=== PATIENT | male | born 1970 | race Hispanic/Latino ===

== ENCOUNTER 2023-12-20 22:10 | Inpatient (IN) | payer OTHER, SELFPAY ==
[2023-12-20] VITALS (8 sets, daily range): BP systolic 138–173; BP diastolic 84–110; BMI 40.0
--- NOTE | 2023-12-20 18:08 | ED.GENMED ---
History of Present Illness
<YOLANDA Gilliam - Last Filed: 12/20/23 21:55>
General
Chief Complaint: Swelling
Source: patient and spouse
Exam Limitations: other (patient unable to speak at this time. )
Time Seen by Provider: 12/20/23 17:53
Travel History
Have you had any contact with someone who has COVID-19?: No
Do you have any symptoms of coronavirus? Fever > 100 degrees, chills, cough, shortness of breath, sore throat, loss of taste or smell, muscle aches, or headache?: No
History of Present Illness
History of Present Illness:
This is a 53 year old male that comes in with c/o sore throat. states that he [place] been unable to speak since Sunday. states that his throat is swollen and he can't talk. States that his right ear hurts but the pain goes form one ear to the other
around his throat. States that the right sided is worse then the left. States that he cant eat or drink and has been unable to swallow his own saliva. States that he has also had a fever with chills on and off with nausea and a headache. States that
his urine is very dark. Denies any chest pain, SOB, abd pain, vomiting, diarrhea, dizziness, urinary burning.
Past History
<YOLANDA Gilliam - Last Filed: 12/20/23 21:55>
Past History
ED Past Medical History: HTN and Other (COVID)
ED Past Surgical History: Cholecystectomy and Other (Gastric bypass, Hernia X2 , abd skin removed from lower abd, Lumpectomy removed from neck, Abdominoplasty)
Social History
Tobacco: Non-smoker
Alcohol: Daily (Port wine 1 glass)
Drug: None
Personal:
Living: with family
Employment: Employed
Family History
Family History: Other (Noncontributory)
Review of Systems
<YOLANDA Gilliam - Last Filed: 12/20/23 21:55>
Review of Systems
All Other Systems: ROS reviewed and negative except as documented in HPI and ROS
Constitutional: Reports fever and chills
EENT: Reports sore throat and other (Unable to speak or swallow his own saliva)
Respiratory: Reports no symptoms; Denies cough or trouble breathing
Cardiac: Reports no symptoms; Denies chest pain
ABD/GI: Reports nausea; Denies abdominal pain, vomiting or diarrhea
: Reports dark urine; Denies dysuria, frequency or urgency
Musculoskeletal: Reports no symptoms
Skin: Reports no symptoms
Neurological: Reports headache; Denies dizzy
Psychiatric: Reports no symptoms
Phy Exam
<YOLANDA Gilliam - Last Filed: 12/20/23 21:55>
General Physical Exam
General Presentation: no apparent distress
General age: appears stated age
General Skin: warm and dry
General Habitus: normal
General Mental: alert
General Hydration: appears well hydrated
ENT Exam
ENT Exam: TM's normal, neck supple and other (Very large possible right sided tonsillar abscess. Unable to see Uvula, Bilateral Lymph adenopathy)
Eye Exam
Eye Exam: EOMI
Cardiovascular Exam
Cardiovascular Exam: regular rate/rhythm, no edema and normal peripheral pulses
Pulmonary Exam
Pulmonary Exam: lungs clear, no respiratory distress, no rales, chest non tender, no crackles, no rhonchi, no wheezing and no cough
Gastrointestinal Exam
Gastrointestinal Exam: normal bowel sounds, non tender, soft, no organomegaly, no pulsatile mass, non distended and other (obese)
Musculoskeletal Exam
Musculoskeletal Exam: full ROM and no edema
Skin Exam
Skin Exam: normal color, warm/dry, no rash and no petechia
Psychiatric Exam
Psychiatric Exam: normal mood/affect
Scores
<YOLANDA Gilliam - Last Filed: 12/20/23 21:55>
Heart Failure Risk
Heart Failure Risk Score: Not Applicable
Course
<YOLANDA Gilliam - Last Filed: 12/20/23 21:55>
Orders/Labs/Results
Orders:
Orders
12/20/23 18:06
CT Neck With Iv Contrast Urgent
Comment:
Reason For Exam: Swellig throat, Unable to swallow saliva or speak.
0.9% Sodium Chloride 1000 ml [Nss] 1,000 ml IV BOLUS
Dexamethasone Sod Phosphate [Decadron] 20 mg IV NOW STA
12/20/23 18:08
Acetaminophen 1000MG/100Ml [Ofirmev] 1,000 mg in 100 ml IV ONCE
Acetaminophen IV Indication:: ED Narcotic Naive Pt-ONCE
Ketorolac [Toradol] 30 mg IV NOW STA
12/20/23 18:14
Complete Blood Count/With Diff Urgent
Comprehensive Metabolic Panel Urgent
Lactic Acid Q4H
Comment: CANCEL 2nd LACTIC ACID IF 1st LACTIC ACID IS LESS THAN 2
Blood Culture Q30M
LEANDRO Source: Blood/Venous
Specimen Description:
Blood Culture Q30M
LEANDRO Source: Blood/Venous
Specimen Description:
12/20/23 21:05
Urinalysis Reflex To Culture Urgent
Date Specimen was Collected: 12/20/23
Time Specimen was Collected: 21:03
Urine Microscopic Reflex Cult Urgent
Urine Culture Urgent
LEANDRO Source: U
Specimen Description:
Date Specimen was Collected: 12/20/23
Time Specimen was Collected: 21:03
12/20/23 21:20
Clindamycin Phosphate [Cleocin] 300 mg 0.9% Sodium Chloride [Nss] 50 ml IV NOW
12/20/23 21:32
Consult ENT [ENT CONSULT] Urgent
Consulting Provider: Kian Li
Was physician already notified: Yes
Abnormal Lab Results
12/20/23 12/20/23
18:14 21:05
WBC 24.3 H 10^3/uL
(4.8-10.8)
RBC 6.25 H 10^6/uL
(4.70-6.10)
Hgb 12.2 L g/dL
(13.0-18.0)
MCV 65.8 L fL
(80.0-94.0)
MCH 19.5 L pg
(27.0-31.0)
MCHC 29.7 L g/dL
(33.0-37.0)
RDW 19.8 H %
(11.5-14.5)
Plt Count 426 H 10^3/uL
(130-400)
Abs Immat Gran (auto) 0.2 H 10^3/uL
(0-0.05)
Absolute Neuts (auto) 20.6 H 10^3/uL
(1.4-6.5)
Absolute Monos (auto) 1.8 H 10^3/uL
(0.1-0.6)
Immature Gran % 0.7 H %
(0-0.5)
Neutrophils % 84.7 H %
(42.2-75.2)
Lymphocytes % 6.8 L %
(20.5-51.1)
Glucose 118 H mg/dl
(70-99)
Alkaline Phosphatase 164 H U/L
(38-126)
Urine Ketones 1+ A
(Negative)
Urine Bilirubin 1+ A
(Negative)
Urine Urobilinogen 4+ A
(Neg - 1+)
Leukocyte Esterase Rfl Trace A
(Negative)
Urine Bacteria (Reflex) Moderate A
(Negative)
12/20/23 18:14
12/20/23 18:14
Leukocytosis, Hgb slightly low. Plt mildly elevated. Glucose nonfasting, Alk phos elevation. lactic acid 1.2
Vital Signs
Initial and Last Documented VS:
Initial Vital Signs
Temp Pulse Resp BP Pulse Ox
101.7 F H 98 16 173/110 98
12/20/23 16:49 12/20/23 16:49 12/20/23 16:49 12/20/23 16:49 12/20/23 16:49
Last Documented Vital Signs
Temp Pulse Resp BP Pulse Ox
101.7 F H 86 16 148/92 97
12/20/23 16:49 12/20/23 20:31 12/20/23 20:31 12/20/23 20:30 12/20/23 20:31
<Naresh Rodriguez MD - Last Filed: 12/20/23 21:34>
Orders/Labs/Results
Orders:
Orders
12/20/23 18:06
CT Neck With Iv Contrast Urgent
Comment:
Reason For Exam: Swellig throat, Unable to swallow saliva or speak.
0.9% Sodium Chloride 1000 ml [Nss] 1,000 ml IV BOLUS
Dexamethasone Sod Phosphate [Decadron] 20 mg IV NOW STA
12/20/23 18:08
Acetaminophen 1000MG/100Ml [Ofirmev] 1,000 mg in 100 ml IV ONCE
Acetaminophen IV Indication:: ED Narcotic Naive Pt-ONCE
Ketorolac [Toradol] 30 mg IV NOW STA
12/20/23 18:14
Complete Blood Count/With Diff Urgent
Comprehensive Metabolic Panel Urgent
Lactic Acid Q4H
Comment: CANCEL 2nd LACTIC ACID IF 1st LACTIC ACID IS LESS THAN 2
Blood Culture Q30M
LEANDRO Source: Blood/Venous
Specimen Description:
Blood Culture Q30M
LEANDRO Source: Blood/Venous
Specimen Description:
12/20/23 21:05
Urinalysis Reflex To Culture Urgent
Date Specimen was Collected: 12/20/23
Time Specimen was Collected: 21:03
Urine Microscopic Reflex Cult Urgent
Urine Culture Urgent
LEANDRO Source: U
Specimen Description:
Date Specimen was Collected: 12/20/23
Time Specimen was Collected: 21:03
12/20/23 21:20
Clindamycin Phosphate [Cleocin] 300 mg 0.9% Sodium Chloride [Nss] 50 ml IV NOW
12/20/23 21:32
Consult ENT [ENT CONSULT] Urgent
Consulting Provider: Kian Li
Was physician already notified: Yes
Abnormal Lab Results
12/20/23 12/20/23
18:14 21:05
WBC 24.3 H 10^3/uL
(4.8-10.8)
RBC 6.25 H 10^6/uL
(4.70-6.10)
Hgb 12.2 L g/dL
(13.0-18.0)
MCV 65.8 L fL
(80.0-94.0)
MCH 19.5 L pg
(27.0-31.0)
MCHC 29.7 L g/dL
(33.0-37.0)
RDW 19.8 H %
(11.5-14.5)
Plt Count 426 H 10^3/uL
(130-400)
Abs Immat Gran (auto) 0.2 H 10^3/uL
(0-0.05)
Absolute Neuts (auto) 20.6 H 10^3/uL
(1.4-6.5)
Absolute Monos (auto) 1.8 H 10^3/uL
(0.1-0.6)
Immature Gran % 0.7 H %
(0-0.5)
Neutrophils % 84.7 H %
(42.2-75.2)
Lymphocytes % 6.8 L %
(20.5-51.1)
Glucose 118 H mg/dl
(70-99)
Alkaline Phosphatase 164 H U/L
(38-126)
Urine Ketones 1+ A
(Negative)
Urine Bilirubin 1+ A
(Negative)
Urine Urobilinogen 4+ A
(Neg - 1+)
Leukocyte Esterase Rfl Trace A
(Negative)
Urine Bacteria (Reflex) Moderate A
(Negative)
12/20/23 18:14
12/20/23 18:14
Vital Signs
Initial and Last Documented VS:
Initial Vital Signs
Temp Pulse Resp BP Pulse Ox
101.7 F H 98 16 173/110 98
12/20/23 16:49 12/20/23 16:49 12/20/23 16:49 12/20/23 16:49 12/20/23 16:49
Last Documented Vital Signs
Temp Pulse Resp BP Pulse Ox
101.7 F H 86 16 148/92 97
12/20/23 16:49 12/20/23 20:31 12/20/23 20:31 12/20/23 20:30 12/20/23 20:31
<YOLANDA Gilliam - Last Filed: 12/20/23 21:55>
MDM/Problems Addressed
Differential Diagnosis Includes:
Peritonsillar abscess, Epiglottis,
MDM/Problems Addressed:
This is a 53 year old male that comes in with c/o sore throat and not being able to speak. States that since Sunday he has swelling in his throat and can't swallow his own saliva and he has not been able to eat or drink. states that he has pain
from the right ear to the left ear.
Will get labs. CT neck, IV fluids, IV Tylenol for ever and Toradol. Will also give IV steroids.
Message sent to Dr. Li with Picture of CT report. Awaiting to hear back from him. Back into see patient. Patient is able now to swallow his own secretions after the steroids. Will give IV antibiotics.
Dr. Li to see patient tomorrow. Will admit to Hospitalist. Hospitalist notified.
Dr. Li into see patient and abscess opened. Will admit patient to ICU tonight and continue with IV clindamycin. States that the patient will most likely be able to go home tomorrow on anabiotics. Hospitalist notified of Dr. Li treatment.
Chronic conditions affecting care:
NA,
Acute Exacerbation and/or Progression of Chronic Illness:
NA
<YOLANDA Gilliam - Last Filed: 12/20/23 21:55>
*Radiology
Radiology exam reviewed: radiology read reviewed (CT- There is a 3cm right tonsilar abscess with significant associated mass effec with deviation of the oral pharynx to the left. There is associated edema in the thickened uvula and epiglottis. There
is associated right cervical lymphadenopathy with posterior cervical chain lymph nodes measuring up) and other (CT cont- to 1.5cm. )
*Pulse Oximetry
Patient hypoxic: no
*EKG
Interpreted by ED Provider?: NA
Rate: EKG- N/A
*Critical Care Note
Total Time (30-74mins, 75-104mins- exclusive of procedures): Not Applicable
ED Attending Note
<YOLANDA Gilliam - Last Filed: 12/20/23 21:55>
-
Portions of this chart may have been created with voice recognition software.� Occasional wrong word or��sound alike� substitutions may have occurred due to the inherent limitations of voice recognition software.
<Naresh Rodriguez MD - Last Filed: 12/20/23 21:34>
ED Attending Note
Patient seen and examined by attending physician: Yes
ED Attending Note:
Patient presents to ED secondary to 5-day history of persistent fever along with worsening right-sided throat pain with swelling. Patient has had difficult time swallowing and eating secondary to pain. Denies nausea, vomiting, or diarrhea. Denies
trauma. Denies sick contact. Denies previous history of similar symptoms. Denies coughing. Patient does report mild headache.
Physical Exam
General: moderate distress, acutely ill. febrile
Head: nc/at. eomi
Neck: supple. normal range of motion. mild right tonsillar swelling/exudate noted.
Heart: s1/s2 regular rate and rhythm, no murmur. equal radial pulses.
Lungs: no acute respiratory distress. clear bilaterally
Abdomen: normal bowel sounds. not tender.
Neuro: alert and oriented. no focal neurological deficits
Skin: no rash
Psychiatric: well kept. interactive and cooperative
Extremities: no edema. no calf tenderness.
Pt reports improvement in symptoms after treatment. Pt is able to open his mouth and verbalize. CT neck pending
CT report reviewed and discussed with (ENT) - will admit to hospitalist on iv abx tonight. Pt remains hemodynamically stable without any acute respiratory distress, but will need close monitoring for potential airway compromise.
Discharge Plan
Departure
Patient Disposition: Admit
Date of Disposition: 12/20/23
Time of Disposition: 21:53
Admit to: ICU
Presentation/result/management discussed w/ accepting MD/DO: Hospitalist
Patient with high blood pressure during this ER visit?: Yes
Condition: Good
Covid-19: Not Applicable
Discharge Problem:
Peritonsillar abscess
Prescriptions:
No Action
acetaminophen 325 mg Tablet
650 mg PO Q6H PRN (Reason: mild pain/fever)
amlodipine 10 mg tablet
10 mg PO DAILY
Referrals:
Ventura Pedro IV, MD [Family Provider] -
Interventions
Interventions:
*Risk Screen - Suicide Last Done: 12/20/23 16:49
*General Assessment Last Done: 12/20/23 16:49
*Neglect/Abuse Screening Last Done: 12/20/23 16:49
*ED COVID-19 Vaccine History Last Done: 12/20/23 16:49
ED- Cardiac Assessment Last Done: 12/20/23 18:21
ED- Pulmonary Assessment Last Done: 12/20/23 18:21
ED-Skin Assessment Last Done: 12/20/23 18:21
Discharge Date and Time
Print Language: KU[place]
[2023-12-20] MEDS: TORADOL 30 MG IV (18:12)
[2023-12-20] MEDS: DECADRON 20 MG IV (18:12)
[2023-12-20] MEDS: OFIRMEV 100 IV (18:12)
[2023-12-20] MEDS: NSS 1000 IV (18:13)
[2023-12-20 18:21] LABS: % Basophils 0.3 % (0-2); % Immature Granulocytes 0.7 % (0-0.5); % Lymphocytes 6.8 % (20.5-51.1); % Monocytes 7.5 % (1.7-9.3); % Neutrophils 84.7 % (42.2-75.2); Absolute Basophils 0.1 10^3/uL (0-0.2); Absolute Immature Granulocytes 0.2 10^3/uL (0-0.05); Absolute Lymphocytes 1.7 10^3/uL (1.2-3.4); Absolute Monocytes 1.8 10^3/uL (0.1-0.6); Absolute Neutrophils 20.6 10^3/uL (1.4-6.5); Hematocrit 41.1 % (39.0-52.0); Hemoglobin 12.2 g/dL (13.0-18.0); Mean Corp Hgb Conc. 29.7 g/dL (33.0-37.0); Mean Corpuscular Hgb 19.5 pg (27.0-31.0); Mean Corpuscular Volume 65.8 fL (80.0-94.0); Mean Platelet Volume 10.2 fL (7.4-10.4); Nucleated Red Blood Cells % 0 % (-); Platelet Count 426 10^3/uL (130-400); Red Blood Cell Count 6.25 10^6/uL (4.70-6.10); Red Cell Dist. Width 19.8 % (11.5-14.5); White Blood Cell Count 24.3 10^3/uL (4.8-10.8)
[2023-12-20 18:39] LABS: Lactic Acid 1.2 mmol/L (0.7-2.0)
[2023-12-20 18:40] LABS: ALT (SGPT) 28 U/L (0-50); AST (SGOT) 36 U/L (17-59); Albumin 3.8 g/dl (3.5-5.0); Alkaline Phosphatase 164 U/L (38-126); Blood Urea Nitrogen 18 mg/dl (9-20); Calcium 9.4 mg/dl (8.4-10.2); Carbon Dioxide 28 mmol/L (22-30); Chloride 102 mmol/L (98-107); Glucose 118 mg/dl (70-99); Potassium 4.7 mmol/L (3.5-5.1); Sodium 136 mmol/L (135-145); Total Bilirubin 1.2 mg/dl (0.2-1.3); Total Protein 7.1 g/dl (6.3-8.2); eGFR > 60.00
[2023-12-20 21:12] LABS: Urine Albumin Trace (Neg - Trace); Urine Bilirubin 1+ (Negative); Urine Character Clear (Clear); Urine Color Yellow; Urine Glucose Negative (Negative); Urine Ketone 1+ (Negative); Urine Leukocyte Trace (Negative); Urine Nitrite Negative (Negative); Urine Occult Blood Negative (Negative); Urine Specific Gravity 1.015 (<1.030); Urine Urobilinogen 4+ (Neg - 1+)
[2023-12-20 21:20] LABS: Urine Mucus Moderate
[2023-12-20 21:21] LABS: Urine Bacteria Moderate (Negative); Urine Red Blood Cell 0-2 /HPF (0-2)
--- NOTE | 2023-12-20 21:46 | HPS.HSE ---
Family Physician
-
Family Physician: Ventura Pedro IV, MD
Chief Complaint
-
sore throat
History of Present Illness
53 year old male that comes in with c/o sore throat. states that he de la paz been unable to speak since Sunday. states that his throat is swollen and he can't talk. States that his right ear hurts but the pain goes form one ear to the other around
his throat. States that the right sided is worse then the left. States that he cant eat or drink and has been unable to swallow his own saliva. States that he has also had a fever with chills on and off with nausea and a headache. States that his
urine is very dark. Denies any chest pain, SOB, abd pain, vomiting, diarrhea, dizziness, urinary burning.
Medical History
Past Medical History
Past Medical History: Reports HTN and Other (covid)
Past Surgical History: Reports Other
Additional Past Surgical History:
Cholecystectomy
Gastric bypass, Hernia X2
Abdomen skin removed from lower abd
Lumpectomy removed from neck
Abdominoplasty
Social History
Tobacco: Non-smoker
Alcohol: Daily ((Port wine 1 glass))
Drug: None
Personal:
Living: With Family
Family History
Family History: Not pertinent
Allergies / Home Medications
Allergies reflects when Allergies were last updated in [employer].
Home Medications with original date entered in [employer]
Allergy/Medication List:
Allergies
Allergy/AdvReac Type Severity Reaction Status Date / Time
shellfish derived Allergy Anaphylaxis Verified 12/25/22 21:16
Home Medications
acetaminophen 325 mg tablet 650 mg PO Q6H PRN mild pain/fever 12/20/23
amlodipine 10 mg tablet 10 mg PO DAILY 12/20/23
Review of Systems
-
Constitutional: Reports Fever and Chills
EENT: Reports See HPI and Sore Throat
Respiratory: Reports No Symptoms
Cardiac: Reports No Symptoms
Abdomen/GI: Reports No Symptoms
: Reports No Symptoms
Musculoskeletal: Reports No Symptoms
Skin: Reports No Symptoms
Neurological: Reports No Symptoms
Endocrine: Reports No Symptoms
Hematologic/Lymphatic: Reports No Symptoms
Psych: Reports No Symptoms
Physical Exam
Vital Signs
Vital Signs
Temp Pulse Resp BP Pulse Ox
101.7 F H 86 16 148/92 97
12/20/23 16:49 12/20/23 20:31 12/20/23 20:31 12/20/23 20:30 12/20/23 20:31
Physical Exam
General: Well Developed, Well Nourished and No Apparent Distress
HEENT: NormoCephalic and Other (mild right tonsillar swelling plus exudate)
Respiratory: Clear; No Wheezes, Rales or Rhonchi
Cardiac: S1/S2 and Regular Rhythm; No Tachycardia
Breast: Deferred by me
GI: Soft, Non Tender, Non Distended and Normal Bowel Sounds
Rectal: Deferred by Provider
Genito-urinary: Deferred by me
Musculoskeletal: No Cyanosis
Skin: Warm
Neuro: AO x 3
Psych: Calm
Laboratory Results
-
12/20/23 18:14
12/20/23 18:14
Laboratory Results
Lactic Acid Cancelled 12/20/23 22:15
Total Bilirubin 1.2 mg/dl (0.2-1.3) 12/20/23 18:14
AST 36 U/L (17-59) 12/20/23 18:14
ALT 28 U/L (0-50) 12/20/23 18:14
Alkaline Phosphatase 164 U/L (38-126) H 12/20/23 18:14
Data Reviewed
-
CT Scan: Report Reviewed by me
Lab Data: Labs Reviewed by me
Impression/Plan
-
Reviewed VS: T101.7 HR 86 BP 150/90
Data
WCC 24
Hgb 12.2 MCV 65
Plt 426
nl CMP
UA Trace LE WCC 3-5
UCx sent
BCx sent
CT Neck
There is a 3cm right tonsilar abscess with significant associated mass effec with deviation of the oral pharynx to the left.
There is associated edema in the thickened uvula and epiglottis.
There is associated right cervical lymphadenopathy with posterior cervical chain lymph nodes measuring up to 1.5cm.)
Last hospitalist admission: Nil
ASSESSMENT & PLAN
Acute large R tonsillar abscess with edema in the thickened uvula and epiglottis : At risk for upper AW obstruction
Associated sepsis ( T101, WCC 24)
- Urgent ENT consulted: seen and I & D'd by ENT at ER - large amount of pus poured out per ENT and immediate relief per patient
- ADAT , clear for now
- agree with IV Clindamycin - can switcht to PO in am per ENT
- cont. IV Decadron for 2 more doses per ENT
- IVF
Primary HTN
- add IV Hydralazine PRN in place of Amlodipine due to PO intolerance
DVT Px: SCD
Code: Full code
IMU
--- NOTE | 2023-12-20 21:53 | CON.MD ---
Consultation - Medical
-
R peritonsillar abscess
Pt with sev day Hx of sore throat, R sided, on no antibx
Presents c worsening Sx
Exam and CT demonstrate large R peritonsillar abscess
PE - Pt uncomfortable, no resp distress
Febrile
OC - mild trismus, large swelling R peritonsillar area
A/P Right peritonsillar abscess
After local anesthesia, I & D performed
Copious purulence expressed - pt flip well
Can admit for observation - IVF, Decadron x 1-2 doses, Clindamycin
Likely can d/c tomorrow on po Clinda or po Augmentin
Follow up in office next week
[2023-12-20] MEDS: CLEOCIN 52 MG IV (22:22)
[2023-12-21] VITALS (12 sets, daily range): BP systolic 119–166; BP diastolic 69–97; BMI 37.6
[2023-12-21] MEDS: NSS 1000 IV ×2 (00:03→08:22)
[2023-12-21] MEDS: DECADRON 4 MG IV ×3 (00:07→18:19)
[2023-12-21] MEDS: PROTONIX IV 40 MG IV (00:18)
[2023-12-21] MEDS: NSS (PRESERVATIVE FREE) 10 ML IV (00:18)
--- NOTE | 2023-12-21 03:52 | PTCARENOTE ---
Pt AAOx, exhibits some slurred speech d/t swelling. Pt states symptoms greatly improved since seen by ENT, but does c/o mouth dryness. Mucous membranes look dry. Oral hygiene encouraged and mouth moisturizer provided. Pt able to answer all admission
questions. Ambulated with steady gait from stretcher to bed and weighed using standing scale. NSR on monitoring equipment. VS as documented. Call talley within reach. NSS running through R AC IV per NOV
[2023-12-21 05:17] LABS: Hematocrit 37.5 % (39.0-52.0); Hemoglobin 11.2 g/dL (13.0-18.0); Mean Corp Hgb Conc. 29.9 g/dL (33.0-37.0); Mean Corpuscular Hgb 19.9 pg (27.0-31.0); Mean Corpuscular Volume 66.7 fL (80.0-94.0); Mean Platelet Volume 10.3 fL (7.4-10.4); Platelet Count 384 10^3/uL (130-400); Red Blood Cell Count 5.62 10^6/uL (4.70-6.10); Red Cell Dist. Width 19.5 % (11.5-14.5); White Blood Cell Count 20.7 10^3/uL (4.8-10.8)
[2023-12-21] MEDS: CLEOCIN 50 IV (05:25)
[2023-12-21 05:50] LABS: ALT (SGPT) 26 U/L (0-50); AST (SGOT) 32 U/L (17-59); Albumin 3.3 g/dl (3.5-5.0); Alkaline Phosphatase 149 U/L (38-126); Blood Urea Nitrogen 24 mg/dl (9-20); Calcium 9.6 mg/dl (8.4-10.2); Carbon Dioxide 26 mmol/L (22-30); Chloride 103 mmol/L (98-107); Estimated Creatinine Clearance 123 ml/min; Glucose 165 mg/dl (70-99); Potassium 5.9 mmol/L (3.5-5.1); Sodium 138 mmol/L (135-145); Total Bilirubin 0.7 mg/dl (0.2-1.3); Total Protein 6.4 g/dl (6.3-8.2); eGFR > 60.00
[2023-12-21] MEDS: LOKELMA 5 GRAM PO (06:37)
[2023-12-21] MEDS: TORADOL 15 MG IV (08:23)
--- NOTE | 2023-12-21 11:04 | CM ---
Patient with Dx R peritonsillar abscess s/p I&D. Receiving IV clindamycin. NPO.
Met with patient and Jigna;
the patient resides with his in a 1 story house with 4 K[address].
He has been independent in ADLs and ambulation.
The patient is active and works.
He has no DME.
Prior remote VN in [facility] after gastric bypass in 2005- cannot remember agency.
PCP - Ventura Pedro
Pharmacy - [facility] [address], [place]
Patient hoping he will be allowed to eat today and discharged to home. is available for transport home.
No CM d/c needs identified.
Plan home.
--- NOTE | 2023-12-21 11:35 | W.PN.ENT ---
Today's Communication
-
seen at bedside
Impression / Plan
-
OK for discharge from my standpoint
will need antibiotics for 10 days
follow up in our office in 1 week
Subjective Data
-
feels much better after drainage
hungry, wants to eat
Objective Data
-
Vital Signs
Temp Pulse Resp BP Pulse Ox
97.7 F 66 13 130/77 95
12/21/23 11:23 12/21/23 08:00 12/21/23 08:00 12/21/23 08:00 12/21/23 08:00
Intake & Output
12/20/23 12/21/23 12/22/23
06:59 06:59 06:59
Output:
Urine, Voided 150 / 150
Lab Results
12/21/23 04:58
12/21/23 04:58
Calcium 9.6 mg/dl (8.4-10.2) 12/21/23 04:58
Total Bilirubin 0.7 mg/dl (0.2-1.3) 12/21/23 04:58
AST 32 U/L (17-59) 12/21/23 04:58
ALT 26 U/L (0-50) 12/21/23 04:58
Alkaline Phosphatase 149 U/L (38-126) H 12/21/23 04:58
Urine Color Yellow 12/20/23 21:05
Urine Clarity Clear (Clear) 12/20/23 21:05
Urine pH 5.0 (5.0-9.0) 12/20/23 21:05
Ur Specific [place] 1.015 (<1.030) 12/20/23 21:05
Urine Ketones 1+ (Negative) A 12/20/23 21:05
Physical Exam
-
swelling decreased
airway OK
Chest: Clear
Respiratory: Clear
Data Reviewed
-
Radiology Results: Report Reviewed
--- NOTE | 2023-12-21 12:35 | W.PN.HOSP.TC ---
Today's Communication/Plan
-
Clear liquids
Speech eval
IV antibiotics Unasyn
Stop steroids later today
Assessment / Plan
Assessment / Plan
Acute large R tonsillar abscess with edema in the thickened uvula and epiglottis
Sepsis 2/2 above-poa
- Urgent ENT consulted: seen and I & D'd by ENT at ER - large amount of pus poured out per ENT and immediate relief per patient
- No culture sent
- Switch to Unasyn.
- Stop Decadron later today.
- IVF
-Clear liquid diet. Speech eval. Can advance as tolerated pending speech evaluation. If tolerating p.o. stop fluids.
-Leukocytosis also worsened due to steroids. Improving.
-Blood Cultures in Lab. Results Pending.
Primary HTN
- add IV Hydralazine PRN in place of Amlodipine due to PO intolerance
-Blood pressure control.
DVT Px: SCD
Code: Full code
Anticipated Discharge: 24 - 48 hours
Subjective/Interval History
-
Date of Service: December 21, 2023
He is feeling significantly better after drainage yesterday
States able to swallow saliva and ice chips
States he is hungry wants to eat
denies any pain with swallowing
Denies any neck pain
Objective Data
-
Labs:
Laboratory Results
12/21/23
04:58
WBC 20.7 H
Hgb 11.2 L
Hct 37.5 L
Plt Count 384
Sodium 138
Potassium 5.9 H D
Chloride 103
Carbon Dioxide 26
BUN 24 H
Creatinine 0.8
Glucose 165 H
Calcium 9.6
Total Bilirubin 0.7
AST 32
ALT 26
Alkaline Phosphatase 149 H
Vital Signs:
Vital Signs
Temp Pulse Resp BP Pulse Ox
97.7 F 60 17 138/90 96
12/21/23 11:23 12/21/23 10:00 12/21/23 10:00 12/21/23 10:00 12/21/23 10:00
I&O
12/20/23 12/21/23 12/22/23
06:59 06:59 06:59
Output Total 150 / 150
Balance -150 / -150
Physical Exam
-
General: Well Developed, No Apparent Distress and Other (Able to speak in complete sentences.)
HEENT: Normocephalic, Atraumatic, Moist Mucous Membranes and Other (Unable to see deep into oral cavity)
Respiratory: Clear to Auscultation and Other (Negative for stridor)
Cardiac: Regular Rhythm and S1/S2; Negative Murmur, Rub or Gallop
GI: Soft, Nontender, Nondistended and Normal Bowel Sounds; Negative Organomegaly
Rectal: Deferred by Provider
Musculoskeletal: No Clubbing, No Cyanosis and No Edema
Skin: Negative Rash
Neuro: Awake, AO x 3 and Nonfocal/Grossly Intact
Hematologic / Lymphatic: Other (No lymph nodes palpable on the right side of the neck and left side.)
Psych: Calm
Data Reviewed
-
Total Time Spent with Patient (in minutes): 55
--- NOTE | 2023-12-21 13:48 | PTOTSP ---
Dysphagia Evaluation
Oral stage WFL. WFL-mild acute pharyngeal dysphagia is likely. Patient denied any c/o stasis. He had no overt coughing concerning for aspiration. Infrequent inconsistent slight throat clear noted with dry solids.
Patient with good insight into dysphagia symptoms which were present due to right peritonsillar abscess/ swelling. He denies any of these symptoms at this time.
Recommend:
1. Regular (pick soft solids), Thin Liquids
2. Medications as best tolerated
3. Strategies: pick soft/moist foods, single sips/bites, slow rate, stop eating/drinking and notify medical staff if symptoms of dysphagia/aspiration worsen
4. Dysphagia follow up at the acute care level.
[2023-12-21] MEDS: UNASYN IV ×2 (14:36→20:08)
--- NOTE | 2023-12-21 14:39 | PTCARENOTE ---
Patient received IV tordal this AM for mild pain. Patient received good pain relief. Now reports zero pain. Tolerated clear liquid diet without any swallowing difficulties. Vital signs stable.
--- NOTE | 2023-12-21 18:45 | PTCARENOTE ---
Patient tolerated regular diet with soft food choices. Using urinal independently. Urine clear mary colored.
[2023-12-22] VITALS: BP 122/79
[2023-12-22 02:00] VITALS: BP 127/82
[2023-12-22] MEDS: UNASYN IV ×2 (02:45→08:41)
[2023-12-22 03:55] VITALS: BMI 40.7
[2023-12-22 04:00] VITALS: BP 135/86
[2023-12-22 06:00] VITALS: BP 142/88
--- NOTE | 2023-12-22 07:00 | PTCARENOTE ---
received report from previous RN. Pt AAOX3. independent in room. pt denies pain, eating without difficulty. pt reports would like to be discharged as soon as possible if able, hosp notified.
[2023-12-22 08:00] VITALS: BP 159/84
[2023-12-22 09:23] LABS: Blood Urea Nitrogen 23 mg/dl (9-20); Calcium 8.9 mg/dl (8.4-10.2); Carbon Dioxide 26 mmol/L (22-30); Chloride 107 mmol/L (98-107); Estimated Creatinine Clearance > 125 ml/min; Glucose 146 mg/dl (70-99); Potassium 4.5 mmol/L (3.5-5.1); Sodium 136 mmol/L (135-145); eGFR > 60.00
--- NOTE | 2023-12-22 09:29 | W.PN.HOSP.TC ---
Today's Communication/Plan
-
po abx
k normalized
dc home
OP ENT f/u
Assessment / Plan
Assessment / Plan
Acute large R tonsillar abscess with edema in the thickened uvula and epiglottis
Sepsis 2/2 above-poa
- Urgent ENT consulted: seen and I & D'd by ENT at ER - large amount of pus poured out per ENT and immediate relief per patient
- No culture sent
- Switch to Unasyn and po augmentin for 10d on dc.
- Stopped Decadron
- IVF stopped
-Tolerating regular diet.
-Leukocytosis also worsened due to steroids. Improving.
-Blood Cultures in Lab. Results Pending.
Primary HTN
- add IV Hydralazine PRN in place of Amlodipine due to PO intolerance
-Blood pressure control.
Hyperkalemia likely 2/2 steroids
-resolved.
DVT Px: SCD
Code: Full code
More than 30 minutes spent in discharge including
Final examination of the patient
Summarizing hospital stay
Instructions for continuing care to all relevant caregivers
Preparation of discharge records, prescriptions, and referral forms
Total time spent (in minutes): 45
Anticipated Discharge: Today
Subjective/Interval History
-
Date of Service: December 22, 2023
eating without any difficulties
no fever
denies neck pain
Objective Data
-
Labs:
Laboratory Results
12/22/23
08:46
Sodium 136
Potassium 4.5
Chloride 107
Carbon Dioxide 26
BUN 23 H
Creatinine 0.6 L
Glucose 146 H
Calcium 8.9
Vital Signs:
Vital Signs
Temp Pulse Resp BP Pulse Ox
98.3 F 63 19 142/88 93
12/22/23 07:35 12/22/23 06:00 12/22/23 06:00 12/22/23 06:00 12/22/23 06:00
I&O
12/21/23 12/22/23 12/23/23
06:59 06:59 06:59
Intake Total 2069
Output Total 800 / 800
Balance 1270 / 1270
Physical Exam
-
General: Well Developed, No Apparent Distress and Other (Able to speak in complete sentences.)
HEENT: Normocephalic, Atraumatic, Moist Mucous Membranes and Other (Unable to see deep into oral cavity)
Respiratory: Clear to Auscultation and Other (Negative for stridor)
Cardiac: Regular Rhythm and S1/S2; Negative Murmur, Rub or Gallop
GI: Soft, Nontender, Nondistended and Normal Bowel Sounds; Negative Organomegaly
Rectal: Deferred by Provider
Musculoskeletal: No Clubbing, No Cyanosis and No Edema
Skin: Negative Rash
Neuro: Awake, AO x 3 and Nonfocal/Grossly Intact
Hematologic / Lymphatic: Other (No lymph nodes palpable on the right side of the neck and left side.)
Psych: Calm
--- NOTE | 2023-12-22 09:34 | W.DCSUMMARY ---
Discharge Summary
Discharge Data
Date of Admission: 12/20/23
Date of Discharge: 12/22/23
-
Pending Results: No
Hospital Course
53-year-old male past medical history of hypertension was presenting with severe difficulty with swallowing and found to be in sepsis. Underwent CT of the neck which showed 3 cm right tonsillar abscess with significant mass effect with deviation of
the oropharynx to the left. ENT was consulted by ER and patient underwent bedside drainage upon admission. No cultures were sent. Patient was started on clindamycin. Patient received IV steroids. Patient with mild hyperkalemia which resolved.
Patient with improvement status post drainage. Patient tolerated clears and t diet was advanced to solids. Speech evaluated patient. IV fluid was discontinued. Clinda was transitioned to Unasyn. Patient tolerated unasyn and thus was transition
to p.o. Augmentin on discharge. Patient will need to follow-up with ENT as outpatient.
Discharge Plan
-
Patient Disposition: Home (Routine Discharge)
Discharge Diagnosis/Procedures: Acute large R tonsillar abscess with edema in the thickened uvula and epiglottis s/p drainage
Sepsis
Hyperkalemia
Condition: Fair
Diet: As tolerated
Additional Diets: 1. Regular (pick soft solids), Thin Liquids
2. Medications as best tolerated
3. Strategies: pick soft/moist foods, single sips/bites, slow rate, stop eating/drinking and notify medical staff if symptoms of dysphagia/aspiration worsen
4. Dysphagia follow up at the acute care level.
Activity: With assistance and As tolerated
Driving Restrictions: As prior to admission
Referrals:
Kian Li MD [Active] - in less than 1 week (CALL TO MAKE APPOINTMENT)
Ventura Pedro IV, MD [Family Provider] - in less than 1 week
Prescriptions:
New
amoxicillin-pot clavulanate 875-125 mg tablet
1 tab PO Q12H Qty: 20 0RF
Continued
acetaminophen 325 mg Tablet
650 mg PO Q6H PRN (Reason: mild pain/fever)
amlodipine 10 mg tablet
10 mg PO DAILY
Discharge Orders:
Discharge Patient (As Directed); Ordered 12/22/23
Ordered By: Shan Orozco
Discharge Date and Time
Discharge Date/Time: 12/22/23 11:24
Print Language: WOLOF
[2023-12-22] MEDS: FLUZONE QUAD 2023-2024 SYRINGE 0.5 ML IM (09:56)
--- NOTE | 2023-12-22 10:26 | CM ---
Chart reviewed and plan is to home when stable, no needs.
Plan; Home when stable.
== END 2023-12-22 11:24 | disposition home or self-care (01) | DRG 854 ==
LOC: IMU 22:10
PROVIDERS: Clinical Nurse Specialist Family Health; ADMITTING PHYSICIAN Internal Medicine; ATTENDING PHYSICIAN Hospitalist; CONSULT PHYSICIAN Otolaryngology; EMERGENCY PHYSICIAN Emergency Medicine; FAMILY PHYSICIAN Family Medicine
PROC: 0W930ZZ Drainage of Oral Cavity and Throat, Open Approach (ICD-10-PCS; 2023-12-20)
DX: A41.9 Sepsis, unspecified organism (principal); J36 Peritonsillar abscess; I10 Essential (primary) hypertension; E87.5 Hyperkalemia
CPT/HCPCS: 70491; 80048; 80053; 81003; 81015; 83605; 85025; 85027; 87040; 87086; 90686; 92526; 92610; 96361; 96374; 96375; 99285; G0008; Q9967

== ENCOUNTER 2024-03-06 06:08 | Day surgery (SDC) | payer OTHER, SELFPAY ==
[2024-03-03 06:34] VITALS: BMI 39.2
[2024-03-03 09:05] LABS: Hematocrit 36.2 % (39.0-52.0); Hemoglobin 10.6 g/dL (13.0-18.0); Mean Corp Hgb Conc. 29.3 g/dL (33.0-37.0); Mean Corpuscular Volume 68.3 fL (80.0-94.0); Mean Platelet Volume 10.5 fL (7.4-10.4); Platelet Count 389 10^3/uL (130-400); Red Cell Dist. Width 19.2 % (11.5-14.5)
[2024-03-03 09:46] LABS: ALT (SGPT) 15 U/L (0-50); AST (SGOT) 26 U/L (17-59); Albumin 3.5 g/dl (3.5-5.0); Alkaline Phosphatase 106 U/L (38-126); Blood Urea Nitrogen 14 mg/dl (9-20); Calcium 9.1 mg/dl (8.4-10.2); Carbon Dioxide 29 mmol/L (22-30); Chloride 105 mmol/L (98-107); Estimated Creatinine Clearance > 125 ml/min; Glucose 86 mg/dl (70-99); Potassium 4.5 mmol/L (3.5-5.1); Sodium 138 mmol/L (135-145); Total Bilirubin 0.5 mg/dl (0.2-1.3); Total Protein 6.3 g/dl (6.3-8.2); eGFR > 60.00
--- NOTE | 2024-03-04 13:40 | PTCARENOTE ---
Patients 03/03 EKG abnormal- reviewed by Dr. Tovar, no further interventions required, Jarrod @ Dr. Mack office notified.
[2024-03-06] VITALS (9 sets, daily range): BP systolic 129–163; BP diastolic 73–100; BMI 39.2
[2024-03-06] MEDS: NORMOSOL-R 1000 IV (08:58)
[2024-03-06] MEDS: DILAUDID 0.5 MG IV (11:08)
[2024-03-06] MEDS: DILAUDID 0.25 MG IV (11:35)
== END 2024-03-06 13:09 | disposition home or self-care (01) ==
LOC: SDS 06:08
PROVIDERS: ATTENDING PHYSICIAN Otolaryngology; FAMILY PHYSICIAN Family Medicine
DX: J03.91 Acute recurrent tonsillitis, unspecified (principal)
CPT/HCPCS: 42826; 88304; 36415; 80053; 85027; 93005

== ENCOUNTER 2024-03-11 21:07 | Emergency (ER) | payer OTHER, SELFPAY ==
[2024-03-11 21:10] VITALS: BP 150/90
--- NOTE | 2024-03-11 22:26 | ED.GENMED ---
History of Present Illness
General
Chief Complaint: Post Operative Problem(s)
Source: patient
Exam Limitations: none
Time Seen by Provider: 03/11/24 21:51
Nursing documentation reviewed up to this point in time: agreed with
Travel History
Have you had any contact with someone who has COVID-19?: No
Do you have any symptoms of coronavirus? Fever > 100 degrees, chills, cough, shortness of breath, sore throat, loss of taste or smell, muscle aches, or headache?: No
History of Present Illness
History of Present Illness:
53-year-old male with past medical history as documented presents for evaluation of tonsillar bleeding. Patient is postop day [address] Li. He says that this morning at around 7 AM he started having rather heavy bleeding
from his tonsils. He was seen in the ENT office by Dr. Li and he says that by the time he was seen the bleeding had abated and he was told that there was a clot over the tonsils. He was told to monitor his bleeding and if it should return to
come into the emergency room. He says that about an hour prior to arrival here he started bleeding once again. Bleeding since has once again improved although he still has noticed occasional spots of blood in his saliva. Aside from bleeding he
says he has had the typical postoperative sore throat and ear fullness as well as a mild headache but he denies any other complaints. He is not on any blood thinners.
Past History
Past History
ED Past Medical History: HTN and Other (COVID)
ED Past Surgical History: Cholecystectomy and Other (Gastric bypass, Hernia X2 , abd skin removed from lower abd, Lumpectomy removed from neck, Abdominoplasty)
Social History
Tobacco: Non-smoker
Alcohol: Daily (Port wine 1 glass)
Drug: None
Personal:
Living: with family
Employment: Employed
Family History
Family History: Other (Noncontributory)
Review of Systems
Review of Systems
All Other Systems: ROS reviewed and negative except as documented in HPI and ROS
EENT: Reports sore throat and other (Tonsillar bleeding)
Respiratory: Denies cough or trouble breathing
Neurological: Reports headache
Phy Exam
Physical Exam
Physical Exam:
General: Awake, alert, oriented x3; no acute distress
Head: Normocephalic, atraumatic
Eyes: Conjunctiva normal
Throat: Airway intact, handling secretions, uvula midline, no active bleeding noted from tonsillectomy site
Neck: Trachea midline, supple without meningismus
Lungs: Breathing comfortably not in distress
Heart: Regular rate
Neuro: No gross deficits
Skin: no rash
Extremities: Moving all extremities equally
Scores
Heart Failure Risk
Heart Failure Risk Score: Not Applicable
Heart Score for Chest Pain Patients
STEMI patient?: Not applicable
Withdrawal Assessment of Alcohol
Withdrawal Assessment Completed?: Not applicable
Course
Vital Signs
Initial and Last Documented VS:
Initial Vital Signs
Temp Pulse Resp BP Pulse Ox
36.8 C 86 20 150/90 98
03/11/24 21:10 03/11/24 21:10 03/11/24 21:10 03/11/24 21:10 03/11/24 21:10
Last Documented Vital Signs
Temp Pulse Resp BP Pulse Ox
36.8 C 86 20 150/90 98
03/11/24 21:10 03/11/24 21:10 03/11/24 21:10 03/11/24 21:10 03/11/24 21:10
MDM/Problems Addressed
Differential Diagnosis Includes:
Post tonsillectomy bleeding
MDM/Problems Addressed:
53-year-old male postop day [address] Li presents for tonsillar bleeding. Had bleeding this morning which resolved then bleeding once again an hour prior to arrival here which again seems to have resolved. Appears
hemostatic on exam. Vitals and exam as above. Case discussed with ENT�recommended observation for rebleeding, if patient continues to bleed likely plan for OR. If not can discharge with close monitoring.
*Pulse Oximetry
Patient hypoxic: no
*Critical Care Note
Total Time (30-74mins, 75-104mins- exclusive of procedures): Not Applicable
Data Reviewed
Review of Other/Old Records Reveals: Operative Reports and Discharge Summary
Source: patient and physician
Patient Management
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
ED Attending Note
-
Portions of this chart may have been created with voice recognition software.� Occasional wrong word or��sound alike� substitutions may have occurred due to the inherent limitations of voice recognition software.
Discharge Plan
Departure
Prescriptions:
No Action
amlodipine 10 mg tablet
10 mg PO DAILY
acetaminophen [Tylenol Ex Str Arthritis Pain] 500 mg Tablet
1,000 mg PO Q6H PRN (Reason: discomfort)
Referrals:
Ventura Pedro IV, MD [Family Provider] -
Interventions
Interventions:
*Risk Screen - Suicide Last Done: 03/11/24 21:10
*General Assessment Last Done: 03/11/24 21:51
*Neglect/Abuse Screening Last Done: 03/11/24 21:10
ED- Fall Risk Assessment Last Done: 03/11/24 21:53
ED-EENT Assessment Last Done: 03/11/24 21:53
ED- Pulmonary Assessment Last Done: 03/11/24 21:53
ED-Skin Assessment Last Done: 03/11/24 21:53
Discharge Date and Time
Print Language: DANISH
[2024-03-11 22:45] VITALS: BP 121/83
[2024-03-11] MEDS: TYLENOL ORAL SOLUTION 1000 MG PO (23:03)
[2024-03-11 23:59] VITALS: BP 133/95
== END 2024-03-12 00:03 | disposition home or self-care (01) ==
LOC: EMR 21:07
PROVIDERS: EMERGENCY PHYSICIAN Emergency Medicine; FAMILY PHYSICIAN Family Medicine
DX: I97.618 Postprocedural hemorrhage of a circulatory system organ or structure following other circulatory system procedure (principal); Y83.8 Other surgical procedures as the cause of abnormal reaction of the patient, or of later complication, without mention of misadventure at the time of the procedure
CPT/HCPCS: 99282

== ENCOUNTER 2025-06-28 09:36 | Day surgery (SDC) | payer OTHER, SELFPAY ==
[2025-06-27 23:41] VITALS: BP 165/98
[2025-06-28] VITALS (16 sets, daily range): BP systolic 144–186; BP diastolic 85–131; BMI 36.7
[2025-06-28 00:13] LABS: Hematocrit 41.0 % (39.0-52.0); Hemoglobin 12.0 g/dL (13.0-18.0); Mean Corp Hgb Conc. 29.3 g/dL (33.0-37.0); Mean Corpuscular Volume 68.1 fL (80.0-94.0); Nucleated Red Blood Cells % 0 % (-); Platelet Count 366 10^3/uL (130-400); Red Cell Dist. Width 19.9 % (11.5-14.5)
[2025-06-28 00:42] LABS: ALT (SGPT) 21 U/L (0-50); AST (SGOT) 29 U/L (17-59); Albumin 4.2 g/dl (3.5-5.0); Alkaline Phosphatase 123 U/L (38-126); Blood Urea Nitrogen 11 mg/dl (9-20); Calcium 9.5 mg/dl (8.4-10.2); Carbon Dioxide 28 mmol/L (22-30); Chloride 103 mmol/L (98-107); Glucose 134 mg/dl (70-99); Lipase 106 U/L (23-300); Potassium 4.7 mmol/L (3.5-5.1); Sodium 136 mmol/L (135-145); Total Protein 7.0 g/dl (6.3-8.2); eGFR > 60.00
[2025-06-28 00:53] LABS: Troponin I < 0.012 ng/ml
--- NOTE | 2025-06-28 01:17 | ED.GENMED ---
ED Provider Triage
<Sushil Soliman MD, Resident - Last Filed: 06/28/25 02:01>
-
Patient seen by provider in Triage?: Seen in Triage
History of Present Illness
<Sushil Soliman MD, Resident - Last Filed: 06/28/25 02:01>
General
Chief Complaint: Abdominal Pain
Source: patient
Exam Limitations: none
Time Seen by Provider: 06/28/25 00:54
History of Present Illness
History of Present Illness:
54-year-old male with severe sharp periumbilical abdominal pain since yesterday morning which is radiating around the right side throughout his back. Associated with nausea, dizziness, weakness. No diarrhea, vomiting, chest pain, shortness of
breath, urinary symptoms. Previous surgeries include a gastric bypass in 2005 and abdominoplasty, and hernia of his right groin. Occasionally drinks but does not smoke. Last bowel movement was yesterday.
Past History
<Sushil Soliman MD, Resident - Last Filed: 06/28/25 02:01>
Past History
ED Past Medical History: HTN and Other (COVID)
ED Past Surgical History: Cholecystectomy and Other (Gastric bypass, Hernia X2 , abd skin removed from lower abd, Lumpectomy removed from neck, Abdominoplasty)
Social History
Tobacco: Non-smoker
Alcohol: Daily (Port wine 1 glass)
Drug: None
Personal:
Living: with family
Employment: Employed
Family History
Family History: Other (Noncontributory)
Review of Systems
<Sushil Soliman MD, Resident - Last Filed: 06/28/25 02:01>
Review of Systems
All Other Systems: ROS reviewed and negative except as documented in HPI and ROS
Phy Exam
<Sushil Soliman MD, Resident - Last Filed: 06/28/25 02:01>
General Physical Exam
General Presentation: well appearing and no apparent distress
General Skin: warm
General Habitus: normal
General Mental: alert
Cardiovascular Exam
Cardiovascular Exam: regular rate/rhythm and no edema
Pulmonary Exam
Pulmonary Exam: lungs clear and no respiratory distress
Gastrointestinal Exam
Gastrointestinal Exam: normal bowel sounds, soft, non distended and tender (periumbilical tenderness to palpation, right inguinal hernia)
Neurological Exam
Neurological Exam: alert and oriented x3
Musculoskeletal Exam
Musculoskeletal Exam: full ROM
Skin Exam
Skin Exam: normal color, warm/dry and no rash
Course
<Sushil Soliman MD, Resident - Last Filed: 06/28/25 02:01>
Orders/Labs/Results
Orders:
Orders
06/27/25 23:44
Electrocardiogram (*1) Urgent
Reason for Study: Abdominal Pain
EKG- Treatment ONCE
06/27/25 23:56
Complete Blood Count/With Diff Urgent
Comprehensive Metabolic Panel Urgent
Lipase Urgent
Troponin I Urgent
06/28/25 01:53
0.9% Sodium Chloride 1000 ml [Nss] 1,000 ml IV BOLUS
HYDROmorphone [Dilaudid] 1 mg IV NOW STA
Iohexol [Omnipaque] See Protocol PO NOW STA
Ondansetron Injectable [Zofran] 4 mg IV NOW STA
06/28/25 01:54
CT Abd/pel W Iv And Oral Contr Urgent
Comment:
Reason For Exam: abd pain
06/28/25 02:00
Lactate Level [Lactic Acid] Urgent
Abnormal Lab Results
06/27/25
23:56
WBC 14.9 H 10^3/uL
(4.8-10.8)
Hgb 12.0 L g/dL
(13.0-18.0)
MCV 68.1 L fL
(80.0-94.0)
MCH 19.9 L pg
(27.0-31.0)
MCHC 29.3 L g/dL
(33.0-37.0)
RDW 19.9 H %
(11.5-14.5)
Absolute Neuts (auto) 12.7 H 10^3/uL
(1.4-6.5)
Neutrophils % 85.3 H %
(42.2-75.2)
Lymphocytes % 9.8 L %
(20.5-51.1)
Glucose 134 H mg/dl
(70-99)
06/27/25 23:56
06/27/25 23:56
Vital Signs
Initial and Last Documented VS:
Initial Vital Signs
Temp Pulse Resp BP Pulse Ox
98.2 F 75 20 165/98 96
06/27/25 23:41 06/27/25 23:41 06/27/25 23:41 06/27/25 23:41 06/27/25 23:41
Last Documented Vital Signs
Temp Pulse Resp BP Pulse Ox
98.1 F 69 16 181/105 99
06/28/25 03:23 06/28/25 05:28 06/28/25 03:23 06/28/25 05:28 06/28/25 05:28
Slavalt;Philipp Simpson DO - Last Filed: 06/28/25 06:45>
Orders/Labs/Results
Orders:
Orders
06/27/25 23:44
Electrocardiogram (*1) Urgent
Reason for Study: Abdominal Pain
EKG- Treatment ONCE
06/27/25 23:56
Complete Blood Count/With Diff Urgent
Comprehensive Metabolic Panel Urgent
Lipase Urgent
Troponin I Urgent
06/28/25 01:53
0.9% Sodium Chloride 1000 ml [Nss] 1,000 ml IV BOLUS
HYDROmorphone [Dilaudid] 1 mg IV NOW STA
Iohexol [Omnipaque] See Protocol PO NOW STA
Ondansetron Injectable [Zofran] 4 mg IV NOW STA
06/28/25 01:54
CT Abd/pel W Iv And Oral Contr Urgent
Comment:
Reason For Exam: abd pain
06/28/25 02:00
Lactate Level [Lactic Acid] Urgent
Abnormal Lab Results
06/27/25
23:56
WBC 14.9 H 10^3/uL
(4.8-10.8)
Hgb 12.0 L g/dL
(13.0-18.0)
MCV 68.1 L fL
(80.0-94.0)
MCH 19.9 L pg
(27.0-31.0)
MCHC 29.3 L g/dL
(33.0-37.0)
RDW 19.9 H %
(11.5-14.5)
Absolute Neuts (auto) 12.7 H 10^3/uL
(1.4-6.5)
Neutrophils % 85.3 H %
(42.2-75.2)
Lymphocytes % 9.8 L %
(20.5-51.1)
Glucose 134 H mg/dl
(70-99)
06/27/25 23:56
06/27/25 23:56
Vital Signs
Initial and Last Documented VS:
Initial Vital Signs
Temp Pulse Resp BP Pulse Ox
98.2 F 75 20 165/98 96
06/27/25 23:41 06/27/25 23:41 06/27/25 23:41 06/27/25 23:41 06/27/25 23:41
Last Documented Vital Signs
Temp Pulse Resp BP Pulse Ox
98.1 F 69 16 181/105 99
06/28/25 03:23 06/28/25 05:28 06/28/25 03:23 06/28/25 05:28 06/28/25 05:28
<Sushil Soliman MD, Resident - Last Filed: 06/28/25 02:01>
MDM/Problems Addressed
Differential Diagnosis Includes:
incarcerated hernia, pancreatitis, appendicitis, abdominal aortic aneurysm, small bowel obstruction, GERD
MDM/Problems Addressed:
- CBC- wbc is 14.9
- CMP unremarkable
- EKG normal
- Lipase normal
- CT abdomen pending
- Hydromorphone ordered for pain, 0.9% fluids, zofran for nausea, and lactate level ordered
<Sushil Soliman MD, Resident - Last Filed: 06/28/25 02:01>
*Pulse Oximetry
SaO2: 96
Oxygen Mode of Delivery: Room air
Patient hypoxic: no
*Critical Care Note
Total Time (30-74mins, 75-104mins- exclusive of procedures): Not Applicable
ED Attending Note
<Sushil Soliman MD, Resident - Last Filed: 06/28/25 02:01>
-
Portions of this chart may have been created with voice recognition software.� Occasional wrong word or��sound alike� substitutions may have occurred due to the inherent limitations of voice recognition software.
<Philipp Simpson, - Last Filed: 06/28/25 06:45>
ED Attending Note
Patient seen and examined by attending physician: Yes
I performed the substantive portion of visit, reviewed & personally made and approve the management plan that is documented in note by myself or PAWAN.: Yes
ED Attending Note:
54-year-old male presents complaint of abdominal pain that started earlier today. Pain is increased in intensity. He has nausea but has not vomited. He feels poorly in general. Patient has a history of significant abdominal surgeries including a
gastric bypass, cholecystectomy. Patient denies any fever.
General: Awake, Alert, Oriented X3. Appears uncomfortable from nausea and abdominal pain
Vitals: unremarkable
Head: Atraumatic
Eyes: Pupils equal, EOMI
Throat: Airway intact, no exudates, dry mucosa
Neck: Trachea midline
Lungs: Clear and equal b/l
Heart: Regular rate, no murmurs
Abd: Soft, tender to palpation central abdomen, no pulsatile mass
Neuro: Nonfocal
Skin: Warm, dry, no rash
Extremities: pulses equal b/l, no edema
Patient presents with significant abdominal pain. Labs showed elevated white blood cell count. Remainder of labs are relatively unremarkable. Will provide analgesia, antiemetics and IV fluids and obtain a CT with IV and p.o. contrast.
CT shows question of right inguinal hernia with potential closed-loop aspect. Discussed with Dr. Philipp Carrillo. Asked that we try ice pack Trendelenburg. He will come and evaluate the patient.
Discharge Plan
Departure
Prescriptions:
No Action
No Current Medications
0
Referrals:
Camilo Nash, [Family Provider, Family Practice]
Interventions
Interventions:
*Risk Screen - Suicide Last Done: 06/27/25 23:41
*General Assessment Last Done: 06/27/25 23:41
*Neglect/Abuse Screening Last Done: 06/27/25 23:41
*ED- Fall Risk Assessment Last Done: 06/28/25 02:00
AZ-Yvxiif-Kjawvwdnjz Assessment Last Done: 06/28/25 03:23
Discharge Date and Time
Print Language: CYPRIOT
[2025-06-28] MEDS: DILAUDID 1 MG IV (02:18)
[2025-06-28] MEDS: NSS 1000 IV (02:19)
[2025-06-28] MEDS: OMNIPAQUE 50 ML PO (02:19)
[2025-06-28] MEDS: ZOFRAN 4 MG IV (02:20)
--- NOTE | 2025-06-28 03:27 | EDRN ---
Pt had a BM yesterday morning around 0800 and noted lower abdominal pain afterwards that has been constant. Pain intensified in the afternoon. Pt went to bed around [id number] and woke at 2300 with severe lower abdominal pain. Pt was dizzy, weak,
nauseous, diaphoretic and felt hot but did not have a fever. No cp, sob, vomiting, diarrhea/constipation, urinary symptoms. Abdominal pain much improved after pain medication in ED per pt.
--- NOTE | 2025-06-28 08:28 | CON.GS ---
Consultation
-
Date/Time Consultation Performed: 06/28/2025
Requesting Provider: Philipp Carrillo MD
Reason for Consultation: Incarcerated inguinal hernia
Medical History
-
History of Present Illness:
Patient is a 54-year-old male with PMH of HTN and obesity (s/p gastric bypass surgery, abdominoplasty, ventral hernia repair x 2) who presents with 1 day of worsening abdominal pain associated with nausea. This started yesterday at around 8:30 in
the morning. It started as a discomfort and progressively got worse. During this time, he noticed a bulge in the right groin. He developed nausea and dry heaving, but no vomiting. He does not remember passing any flatus or BMs recently. He
denies any chest pain, SOB, fevers or urinary symptoms. In the ED, WBC was 14.[address] scan showed acute small bowel obstruction due to an incarcerated right inguinal hernia. The ED provider attempted reduction, but was unsuccessful.
Past Medical History
Past Medical History: Other
Past Surgical History: Other (Gastric bypass, ventral hernia repair x 2, tonsils, cholecystectomy, abdominoplasty, neck lump removal)
Social History
Tobacco: Non-Smoker
Alcohol: Occasional (Glass of wine every 2 to 3 days)
Drug: None
Family History
Family History: Other (Dad with colon cancer in his 80s)
Allergies / Home Medications
Allergy/AdvReac Type Severity Reaction Status Date / Time
shellfish derived Allergy Severe Anaphylaxis Verified 06/28/25 03:26
�Medication �Instructions �Recorded �Confirmed �Type
No Meds [No Current Medications] 06/28/25 06/28/25 History
Review of Systems
-
A 10 point review of systems was completed, and was negative except as per HPI.
Physical Exam
Vital Signs
Temp Pulse Resp BP Pulse Ox
98.1 F 69 16 181/105 99
06/28/25 03:23 06/28/25 05:28 06/28/25 03:23 06/28/25 05:28 06/28/25 05:28
06/27/25 06/28/25 06/29/25
06:59 06:59 06:59
Actual Weight 116 kg
Body Mass Index (BMI) 36.7
Lab Results
06/27/25 23:56
06/27/25 23:56
WBC 14.9 10^3/uL (4.8-10.8) H 06/27/25 23:56
Hgb 12.0 g/dL (13.0-18.0) L 06/27/25 23:56
Hct 41.0 % (39.0-52.0) 06/27/25 23:56
Plt Count 366 10^3/uL (130-400) 06/27/25 23:56
Abs Immat Gran (auto) 0.0 10^3/uL (0-0.05) 06/27/25 23:56
Neutrophils % 85.3 % (42.2-75.2) H 06/27/25 23:56
Physical Exam
General: Well Developed, Well Nourished and No Apparent Distress
HEENT: Normocephalic and Atraumatic
Respiratory: Non Labored Respirations
Cardiac: S1/S2
GI: Soft, Non Tender and Tender (Mildly distended, no rebound or guarding)
Genito-urinary: Inguinal Hernia (Large protruding inguinal hernia in the right scrotum, no overlying skin changes, mildly tender)
Neuro: AO x 3
Data Reviewed
-
CT Scan: Image Personally Visualized and interpreted, Discussed with Physician (ED physician) and Discussed with Patient
Labs: Labs Reviewed by me and Discussed with Patient
Assessment / Plan
-
54-year-old male with PMH of HTN and obesity (s/p gastric bypass surgery, abdominoplasty, ventral hernia repair x 2) who presents with 1 day of worsening abdominal pain associated with nausea. This started yesterday at around 8:30 in the morning.
It started as a discomfort and progressively got worse. During this time, he noticed a bulge in the right groin. He developed nausea and dry heaving, but no vomiting. He does not remember passing any flatus or BMs recently. He denies any chest
pain, SOB, fevers or urinary symptoms. In the ED, WBC was 14.9, lactate normal and a CT scan showed acute small bowel obstruction due to an incarcerated right inguinal hernia. The ED provider attempted reduction, but was unsuccessful.
AFVSS
�Incarcerated inguinal hernia; s/p attempt at reduction by the ED
�I discussed the pathophysiology and treatment options with the patient; patient agreed to another attempt at bedside reduction; I repeated this, but unfortunately I was unable to reduce the hernia; reviewed the options at this point, including
surgery; I explained that I would attempt to reduce the hernia laparoscopically, which would allow for a future robotic mesh repair; however, if this was not possible, I would convert to an open procedure, either through an inguinal incision or
midline laparotomy; I explained the risks of possible bowel resection in case the bowel is no longer viable after reduction
�Will admit to surgery
� Keep n.p.o. with IVF
� Pain control with Toradol and Dilaudid as needed
� Will send type and screen and coags
�DVT PPx
--- NOTE | 2025-06-28 11:45 | W.IMMPOSTOP ---
Surgical Immed Post Op Note
-
Primary Surgeon: Nate Lee MD
Assisting Surgeon: Philipp Carrillo MD
Pre-op Diagnosis: Incarcerated right inguinal hernia
Post-op Diagnosis: Incarcerated right inguinal hernia
Procedure Performed: Open repair of incarcerated right inguinal hernia with mesh
Anesthesia Type: General
Specimen / Cultures: None
Estimated Blood Loss: 15 mL
Complications: None
Operative Findings: Successfully reduced small bowel, which appeared viable; closed deep inguinal ring with a few interrupted stitches to reapproximate it to normal size and then placed mesh
--- NOTE | 2025-06-28 12:40 | PTCARENOTE ---
Patient picked up from pacu by receiving RN, on 2L NC, denies sob/pain.
[2025-06-28 13:15] LABS: INR 1.06; PT 14.1 Sec (11.4-14.6)
[2025-06-28 13:16] LABS: APTT 28.1 Sec (23.4-35.0)
--- NOTE | 2025-06-28 13:48 | PTCARENOTE ---
messaged surgical team for diet order for patient
--- NOTE | 2025-06-28 16:24 | PTCARENOTE ---
Patient remains pain free, surgical site c/d/i, surgical team confirmed with RN that he is to remain npo. pt voiding in urinal
[2025-06-28] MEDS: TYLENOL 650 MG PO ×2 (17:11→20:00)
[2025-06-28] MEDS: LOVENOX 40 MG SC (17:11)
[2025-06-28] MEDS: COLACE 100 MG PO (19:59)
[2025-06-29] MEDS: TYLENOL PO ×3 (00:08→23:24)
[2025-06-29] MEDS: TUMS CHEWABLE TABLET 400 MG PO ×2 (02:45→13:12)
[2025-06-29 03:34] VITALS: BP 149/93
[2025-06-29 07:00] VITALS: BP 160/89
[2025-06-29] MEDS: COLACE 100 MG PO ×2 (07:48→19:59)
[2025-06-29] MEDS: TYLENOL 650 MG PO ×4 (07:48→20:00)
[2025-06-29 08:49] LABS: Hematocrit 36.6 % (39.0-52.0); Hemoglobin 10.7 g/dL (13.0-18.0); Mean Corp Hgb Conc. 29.2 g/dL (33.0-37.0); Mean Corpuscular Volume 67.9 fL (80.0-94.0); Platelet Count 329 10^3/uL (130-400); Red Cell Dist. Width 19.3 % (11.5-14.5)
[2025-06-29 09:25] LABS: Blood Urea Nitrogen 12 mg/dl (9-20); Calcium 8.5 mg/dl (8.4-10.2); Carbon Dioxide 30 mmol/L (22-30); Chloride 102 mmol/L (98-107); Estimated Creatinine Clearance > 125 ml/min; Glucose 73 mg/dl (70-99); Potassium 4.1 mmol/L (3.5-5.1); Sodium 137 mmol/L (135-145); eGFR > 60.00
--- NOTE | 2025-06-29 10:52 | W.PN.CRS1 ---
Today's Communication / Plan
-
clears
Assessment/Plan
-
POD#1 Open repair of incarcerated right inguinal hernia with mesh
vitals: normal
WBC: 14.2 (14.9), Hgb 10.7 (12.0, 10.6)
-Advance to clears
-OOB as tolerated
-Start lovenox for DVT prophylaxis, TEDS/SCDS in place
-Pain control: tylenol/toradol standing, dilaudid PRN, oxycodone PRN
-Will change dressing tomorrow
-Trend labs
Subjective Data
Procedure
06/28/2025- Open repair of incarcerated right inguinal hernia with mesh
Subjective Data
Date of Service: June 29, 2025
Patient states he feels a little bloated. He overall feels well. He has flatus. He has no bowel movements. He has no nausea or vomiting.
Objective Data
-
Vital Signs
Temp Pulse Resp BP Pulse Ox
98.1 F 64 18 160/89 95
06/29/25 07:00 06/29/25 07:00 06/29/25 07:00 06/29/25 07:00 06/29/25 07:00
Intake & Output
06/28/25 06/29/25 06/30/25
06:59 06:59 06:59
Intake Total 100 / 100 0 / 0
Output Total 3650 / 3650 300 / 300
Balance -3550 / -3550 -300 / -300
Intake:
Oral fluids 0 / 0 0 / 0
IV fluids (Total) 100 / 100 0 / 0
Normosol 100 / 100
Output:
Urine, Voided 3650 / 3650 300 / 300
Lab Results
06/29/25 07:11
10/06/25 07:11
Physical Exam
-
General: No Acute Distress and AOx3
Abdomen: Soft, Non Distended and Non Tender
Skin: Warm and Dry
Wound: Dressing in Place
--- NOTE | 2025-06-29 12:38 | CM ---
Reviewed chart and met with pt and spouse bedside. IA completed. Independent with ADLs an IADLs.Lives with and 2 dtr in a mobile home which has 5 steps at the entrance to the home. No hx of HH, SNF, home O2 or DME. Confirmed PCP, Rx, insurance
and drug coverage.
Insecurities identified - food, and paying household bill. Pt will be out of work for 4-6 weeks. Stating they have food 'for now'. Will provide [employer] resource.
Plan: home without needs
[2025-06-29 15:00] VITALS: BP 138/78
[2025-06-29] MEDS: LOVENOX 40 MG SC (17:03)
[2025-06-29 23:29] VITALS: BP 148/93
[2025-06-30] MEDS: TYLENOL PO (04:35)
[2025-06-30] MEDS: TUMS CHEWABLE TABLET 400 MG PO (07:28)
[2025-06-30 07:30] VITALS: BP 130/74
[2025-06-30 07:33] LABS: Hematocrit 35.6 % (39.0-52.0); Hemoglobin 10.5 g/dL (13.0-18.0); Mean Corp Hgb Conc. 29.5 g/dL (33.0-37.0); Mean Corpuscular Volume 67.6 fL (80.0-94.0); Nucleated Red Blood Cells % 0 % (-); Platelet Count 305 10^3/uL (130-400); Red Cell Dist. Width 18.9 % (11.5-14.5)
[2025-06-30 07:59] LABS: Blood Urea Nitrogen 13 mg/dl (9-20); Calcium 8.4 mg/dl (8.4-10.2); Carbon Dioxide 30 mmol/L (22-30); Chloride 103 mmol/L (98-107); Estimated Creatinine Clearance > 125 ml/min; Glucose 83 mg/dl (70-99); Potassium 4.1 mmol/L (3.5-5.1); Sodium 136 mmol/L (135-145); eGFR > 60.00
--- NOTE | 2025-06-30 09:30 | CM ---
Postop hernia repair .
Adv diet to reg.
Receiving pain meds as needed.
[employer] [place] independent.
PLAN Home no needs
[2025-06-30] MEDS: TYLENOL 650 MG PO (09:32)
[2025-06-30] MEDS: COLACE 100 MG PO (09:33)
--- NOTE | 2025-06-30 09:39 | W.PN.CRS1 ---
Today's Communication / Plan
-
discharge
Assessment/Plan
-
POD#2 Open repair of incarcerated right inguinal hernia with mesh
vitals: normal
WBC: 11.8), Hgb 10.5 (06/30)
-Tolerating a regular diet
-OOB as tolerated
-Lovenox for DVT prophylaxis, TEDS/SCDS in place
-Pain control: tylenol/toradol standing, dilaudid PRN, oxycodone PRN
-Dressing changed at bedside
-Okay for d/c today. All discharge instructions discussed with patient including medications, activity levels, and follow up. All questions addressed. Follow up with Dr. Carrillo in 2 weeks.
Subjective Data
Procedure
06/28/2025- Open repair of incarcerated right inguinal hernia with mesh
Subjective Data
Date of Service: June 30, 2025
Patient states he feels well. He denies nausea or vomiting. His pain is controlled on Tylenol. Has bowel function.
Objective Data
-
Vital Signs
Temp Pulse Resp BP Pulse Ox
97.8 F 85 18 130/74 96
06/30/25 07:30 06/30/25 07:30 06/30/25 07:30 06/30/25 07:30 06/30/25 07:30
Intake & Output
06/29/25 06/30/25 07/01/25
06:59 06:59 06:59
Intake Total 100 / 100 480 / 480
Output Total 3650 / 3650 300 / 300
Balance -3550 / -3550 180 / 180
Intake:
Oral fluids 0 / 0 480 / 480
IV fluids (Total) 100 / 100 0 / 0
Normosol 100 / 100
Output:
Urine, Voided 3650 / 3650 300 / 300
Other:
Number of approximated MODERATE 2
amounts of urine
Lab Results
06/30/25 07:12
06/30/25 07:12
Physical Exam
-
General: No Acute Distress and AOx3
Abdomen: Soft, Non Distended and Non Tender
Wound: Dressing Changed
Incision: Clear, Dry, Intact
[2025-06-30 11:28] VITALS: BP 129/82
== END 2025-06-30 12:43 | disposition home or self-care (01) ==
LOC: SDS 09:36
PROVIDERS: Physician Assistant; Registered Nurse; ATTENDING PHYSICIAN Surgery; EMERGENCY PHYSICIAN Emergency Medicine; FAMILY PHYSICIAN Family Medicine
DX: K40.30 Unilateral inguinal hernia, with obstruction, without gangrene, not specified as recurrent (principal); Z98.84 Bariatric surgery status
CPT/HCPCS: 49507; 74177; 80048; 80053; 83605; 83690; 84484; 85025; 85027; 85610; 85730; 86850; 86900; 86901; 93005; 96361; 96374; 96375; 99285; C1781; Q9967